=== PATIENT | male | born 1995 | race African-American/Black ===

== ENCOUNTER 2018-03-20 21:16 | Inpatient (IN) | payer BC ==
[~2018-03-20] VITALS: Ht 188 cm; Wt 79.4 kg
[2018-03-20] MEDS ORDERED: NKM (21:39)
[2018-03-20 21:40] VITALS: BP 126/81
--- NOTE | 2018-03-20 21:46 | NUR ---
ED Nurse Note: Patient came to ED c/o "ruptured left knee" due to playing basketball earlier today, patient reports going in for a dunk and landed wrong. patient was at [facility] earlier this night. pt stated that MD Hanson instructed pt to come to [facility] to have a Pre/Post op interventions done. pulse and sensation noted on affected extremity.
--- NOTE | 2018-03-20 22:39 | Emergency Room Report ---
History of Present Illness General Chief Complaint: Lower Extremity Injury Source: Patient Present Illness HPI Patient presents with complaints of left knee discomfort Reports that as he was planting to jump while playing basketball felt a pop and laxity to the left leg patient has significant pain to the left knee Reports that he was seen at another facility After being disposition patient is ambulatory to have any movement with crutches or with knee immobilizer Complains of continued pain Denies any hip pain or ankle pain Allergies: Coded Allergies: No Known Allergies (Unverified , 03/20/18) Patient History Past Medical History: see triage record Pertinent Family History: none Reviewed Nursing Documentation: PMH: Agreed; PSxH: Agreed Nursing Documentation-PMH Past Medical History: No Stated History Review of Systems All Other Systems: negative except mentioned in HPI Physical Exam Vital Signs Date Time Temp Pulse Resp B/P (MAP) Pulse Ox O2 Delivery O2 Flow Rate FiO2 03/20/18 21:36 97.9 67 18 127/73 99 Room Air Sp02 EP Interpretation: reviewed, normal General Appearance: well appearing, no apparent distress Head: normocephalic, atraumatic Eyes: bilateral eye PERRL, bilateral eye EOMI ENT: hearing grossly normal, normal pharynx, TMs + canals normal, uvula midline Neck: full range of motion, supple, no meningismus, no bony tend Respiratory: lungs clear, normal breath sounds, no rhonchi, no respiratory distress, no retraction, no accessory muscle use Cardiovascular #1: normal peripheral pulses, regular rate, rhythm, no edema, no gallop, no JVD, no murmur Gastrointestinal: normal bowel sounds, non tender, soft, no mass, no organomegaly, non-distended, no guarding, no hernia, no pulsatile mass, no rebound Genitourinary: no CVA tenderness Musculoskeletal: swelling - To the left knee, edematous Neurologic: oriented x3, responsive, records management director III-XII nml as tested, motor strength/ tone normal, sensory intact Psychiatric: mood/affect normal Skin: palpation normal, other - Swelling Lymphatic: normal inspection, no adenopathy Medical Decision Making Diagnostic Impression: Primary Impression: Injury of lower extremity Additional Impression: Patellar tendon rupture ER Course Patient has repeat imaging obtained at this time Requiring pain medication Patient's mom describing that the patient has significant discomfort Unable to transport from car to home On initial transport from the initial hospital the discomfort was intolerable Please note that the patient presented in a knee immobilizer and further intervention regarding that was not performed here Contact is made with orthopedic specialty who recommends further inpatient care and possible surgical intervention Patient admitted for further care Labs Test 03/20/18 22:30 White Blood Count 7.9 K/UL (4.8-10.8) Red Blood Count 4.50 M/UL (4.70-6.10) Hemoglobin 13.6 G/DL (14.2-18.0) Hematocrit 42.8 % (42.0-52.0) Mean Corpuscular Volume 95 FL (80-99) Mean Corpuscular Hemoglobin 30.3 PG (27.0-31.0) Mean Corpuscular Hemoglobin Concent 31.9 G/DL (32.0-36.0) Red Cell Distribution Width 12.0 % (11.6-14.8) Platelet Count 164 K/UL (150-450) Mean Platelet Volume 8.0 FL (6.5-10.1) Neutrophils (%) (Auto) 65.9 % (45.0-75.0) Lymphocytes (%) (Auto) 21.9 % (20.0-45.0) Monocytes (%) (Auto) 10.3 % (1.0-10.0) Eosinophils (%) (Auto) 0.7 % (0.0-3.0) Basophils (%) (Auto) 1.3 % (0.0-2.0) Sodium Level 139 MMOL/L (136-145) Potassium Level 3.5 MMOL/L (3.5-5.1) Chloride Level 102 MMOL/L (98-107) Carbon Dioxide Level 30 MMOL/L (21-32) Anion Gap 7 mmol/L (5-15) Blood Urea Nitrogen 15 mg/dL (7-18) Creatinine 1.0 MG/DL (0.55-1.30) Estimat Glomerular Filtration Rate > 60 mL/min (>60) Glucose Level 94 MG/DL (74-106) Calcium Level 9.1 MG/DL (8.5-10.1) Last Vital Signs Date Time Temp Pulse Resp B/P (MAP) Pulse Ox O2 Delivery O2 Flow Rate FiO2 03/20/18 21:36 97.9 67 18 127/73 99 Room Air Status: improved Disposition: PLACE IN OBSERVATION Condition: Improved Gail Lawton DO Mar 20, 2018 22:39
[2018-03-20 22:47] LABS: BASOPHILS % (AUTO) 1.3 % (0.0-2.0); EOSINOPHILS % (AUTO) 0.7 % (0.0-3.0); HEMATOCRIT 42.8 % (42.0-52.0); HEMOGLOBIN 13.6 G/DL (14.2-18.0); LYMPHOCYTES % (AUTO) 21.9 % (20.0-45.0); MEAN CORPUSCULAR VOLUME 95 FL (80-99); MONOCYTES % (AUTO) 10.3 % (1.0-10.0); NEUTROPHILS % (AUTO) 65.9 % (45.0-75.0); PLATELET COUNT 164 K/UL (150-450); WHITE BLOOD COUNT 7.9 K/UL (4.8-10.8)
[2018-03-20 22:56] LABS: ANION GAP 7 mmol/L (5-15); BLOOD UREA NITROGEN 15 mg/dL (7-18); CALCIUM 9.1 MG/DL (8.5-10.1); CARBON DIOXIDE 30 MMOL/L (21-32); CHLORIDE 102 MMOL/L (98-107); POTASSIUM 3.5 MMOL/L (3.5-5.1); SODIUM 139 MMOL/L (136-145)
[2018-03-20 23:40] VITALS: BP 129/79
[2018-03-21] VITALS (17 sets, daily range): BP systolic 107–142; BP diastolic 41–87
[2018-03-21] MEDS ORDERED: Ketorolac 30mg Inj IV ONE (01:00)
--- NOTE | 2018-03-21 07:31 | NUR ---
ED Nurse Note: Pt in bed sleeping comfortably, lung sounds clear, non-labored. Vital signs stable. When asked, pt stated he is not in pain. Knee immobilizer applied on L knee. Mother at bedside.
--- NOTE | 2018-03-21 08:40 | NUR ---
ED Nurse Note: 18G IV noted on L antecubital.
--- NOTE | 2018-03-21 08:58 | NUR ---
ED Nurse Note: RN tried to give report but no available RN to take report on at this time.
--- NOTE | 2018-03-21 09:17 | NUR ---
ED Nurse Note: Report given to JOHNIE Knutson at ext [phone]. Pt to be transfered to room [facility] on [facility] per protocol with all belongings.
--- NOTE | 2018-03-21 09:30 | NUR ---
NURSE NOTES: Received report from JOHNIE Black. Patient came and a/o x4. No respiratory distress and denies any pain at this time. Checked belongings with outgoing nurse. Orientation was given. Patient on NPO for possible surgery today. Bed in lowest position, call light within reach. Will continue to monitor.
--- NOTE | 2018-03-21 10:52 | Diagnostic Imaging Report ---
Indication: Pain, trauma Technique: 3 views of the left knee Comparison: None Findings: There is patella jovany. No acute fractures. No dislocations. There is evidence of thickening of the patellar tendon and adjacent subcutaneous fat on the lateral view. No definite suprapatellar effusion Impression: Possible patella jovany, raising concern for patellar tendon rupture. Correlate with clinical findings No acute bony trauma This agrees with clinical impression reported in the electronic medical record by the emergency room physician
--- NOTE | 2018-03-21 11:32 | NUR ---
NURSE NOTES: Dr. Hanson called and ordered get the consent for open repair of left patellar tendon. Noted and carried out.
--- NOTE | 2018-03-21 12:40 | NUR ---
NURSE NOTES: Dr. Adamson ordered 1. NPO 2. NS 100/hr IV hydration 3. Morphine 2 mg IVP Q3 for mild pain 4. Morphine 4 mg IVP Q3 for moderate pain Noted and carried out.
[2018-03-21] MEDS ORDERED: Morphine Sulfate 4mg/ml Inj (IV/IM USE ONLY) IVP PRN (12:49)
[2018-03-21] MEDS ORDERED: Morphine Sulfate 2mg/ml Inj IVP PRN (12:49)
--- NOTE | 2018-03-21 12:58 | History & Physical ---
History and Physical History & Physicial Patient presents with complaints of left knee pain and discomfort Reports that as he was planting to jump while playing basketball and felt a pop Patient was seen at another facility now noted to have a rupture and requires ortho intervention PMH negative MEDS and ALLERGIES negative PHYSICAL WDWN NAD clear breath sounds bilaterally without rhonchi or wheeze [id number] without MRG NABS nontender no HSM no CCE nonfocal Laboratory Tests Test 03/20/18 22:30 White Blood Count 7.9 K/UL (4.8-10.8) Red Blood Count 4.50 M/UL (4.70-6.10) L Hemoglobin 13.6 G/DL (14.2-18.0) L Hematocrit 42.8 % (42.0-52.0) Mean Corpuscular Volume 95 FL (80-99) Mean Corpuscular Hemoglobin 30.3 PG (27.0-31.0) Mean Corpuscular Hemoglobin Concent 31.9 G/DL (32.0-36.0) L Red Cell Distribution Width 12.0 % (11.6-14.8) Platelet Count 164 K/UL (150-450) Mean Platelet Volume 8.0 FL (6.5-10.1) Neutrophils (%) (Auto) 65.9 % (45.0-75.0) Lymphocytes (%) (Auto) 21.9 % (20.0-45.0) Monocytes (%) (Auto) 10.3 % (1.0-10.0) H Eosinophils (%) (Auto) 0.7 % (0.0-3.0) Basophils (%) (Auto) 1.3 % (0.0-2.0) Sodium Level 139 MMOL/L (136-145) Potassium Level 3.5 MMOL/L (3.5-5.1) Chloride Level 102 MMOL/L (98-107) Carbon Dioxide Level 30 MMOL/L (21-32) Anion Gap 7 mmol/L (5-15) Blood Urea Nitrogen 15 mg/dL (7-18) Creatinine 1.0 MG/DL (0.55-1.30) Estimat Glomerular Filtration Rate > 60 mL/min (>60) Glucose Level 94 MG/DL (74-106) Calcium Level 9.1 MG/DL (8.5-10.1) IMPRESSION patella tendon fracture PLAN medically stable ecg and pt and ptt surgery today and dispo per Chilo Stone MD Mar 21, 2018 12:57
[2018-03-21 13:44] LABS: INR 1.1 (0.9-1.1)
[2018-03-21] MEDS ORDERED: oxyCODONE HCL/Acetaminophen 5/325mg ORAL PRN (14:45)
[2018-03-21] MEDS ORDERED: fentaNYL 100 mcg/2 mL IV PRN (14:45)
[2018-03-21] MEDS ORDERED: Meperidine 50mg/ml Inj(FOR RIGORS ONLY) IVP PRN (14:45)
[2018-03-21] MEDS ORDERED: LORazepam Inj 2mg/ml 1ml IV PRN (14:45)
[2018-03-21] MEDS ORDERED: Hydromorphone 0.5mg/0.5ml inj IVP PRN (14:45)
[2018-03-21] MEDS ORDERED: Ketorolac 30mg Inj IV PRN ×2 (14:45)
[2018-03-21] MEDS ORDERED: Atropine Sulfate 0.4mg/ml inj IVP PRN (14:45)
[2018-03-21] MEDS ORDERED: LR 1000ml 1,000 ML IVLG SCH (14:45)
[2018-03-21] MEDS ORDERED: DiphenhydrAMINE 50mg/ml Inj IVP PRN (14:45)
[2018-03-21] MEDS ORDERED: Acetaminophen (Non formulary) 100 ML IV ONE (14:45)
[2018-03-21] MEDS ORDERED: Midazolam 2mg/2ml Inj IVP PRN (14:45)
[2018-03-21] MEDS ORDERED: Metoclopramide 10mg/2ml Inj IVP PRN (14:45)
[2018-03-21] MEDS ORDERED: HYDROcodone/Acetamin 7.5/325 tab ORAL PRN (14:45)
[2018-03-21] MEDS ORDERED: Norco 5mg/325mg tab ORAL PRN ×2 (14:45→16:15)
--- NOTE | 2018-03-21 14:47 | Anethesia Preoperative Eval ---
Anesthesia Pre-op PMH/ROS General Date of Evaluation: Mar 21, 2018 Time of Evaluation: 15:59 Anesthesiologist: Titi ASA Score: ASA 1 Mallampati Score Class I : Soft palate, uvula, fauces, pillars visible Class II: Soft palate, uvula, fauces visible Class III: Soft palate, base of uvula visible Class IV: Only hard plate visible Mallampati Classification: Class I Surgeon: Valentin Diagnosis: L Knee Pain Surgical Procedure: L Knee Patellar Tendon Repair Anesthesia History: none Family History: no anesthesia problems Allergies: Coded Allergies: No Known Allergies (Unverified , 03/20/18) Medications: see eMAR Patient NPO?: Yes NPO Date: Mar 20, 2018 NPO Time: 0000 Anesthesia Pre-op Phys. Exam Physician Exam Last Vital Signs Date Time Temp Pulse Resp B/P (MAP) Pulse Ox O2 Delivery O2 Flow Rate FiO2 03/21/18 12:00 98.1 71 19 128/70 (89) 97 03/21/18 09:36 Room Air Constitutional: NAD Neurologic: CN 2-12 intact Cardiovascular: RRR Respiratory: CTA Gastrointestinal: S/NT/ND Airway Exam Mallampati Score: Class I MO: full ROM: full Teeth: intact Anesthesia Pre-op A/P Labs Hematology Test 03/20/18 22:30 White Blood Count 7.9 K/UL (4.8-10.8) Red Blood Count 4.50 M/UL (4.70-6.10) L Hemoglobin 13.6 G/DL (14.2-18.0) L Hematocrit 42.8 % (42.0-52.0) Mean Corpuscular Volume 95 FL (80-99) Mean Corpuscular Hemoglobin 30.3 PG (27.0-31.0) Mean Corpuscular Hemoglobin Concent 31.9 G/DL (32.0-36.0) L Red Cell Distribution Width 12.0 % (11.6-14.8) Platelet Count 164 K/UL (150-450) Mean Platelet Volume 8.0 FL (6.5-10.1) Neutrophils (%) (Auto) 65.9 % (45.0-75.0) Lymphocytes (%) (Auto) 21.9 % (20.0-45.0) Monocytes (%) (Auto) 10.3 % (1.0-10.0) H Eosinophils (%) (Auto) 0.7 % (0.0-3.0) Basophils (%) (Auto) 1.3 % (0.0-2.0) Coagulation Test 03/21/18 13:15 Prothrombin Time 11.7 SEC (9.30-11.50) H Prothromb Time International Ratio 1.1 (0.9-1.1) Activated Partial Thromboplast Time 25 SEC (23-33) Chemistry Test 03/20/18 22:30 Sodium Level 139 MMOL/L (136-145) Potassium Level 3.5 MMOL/L (3.5-5.1) Chloride Level 102 MMOL/L (98-107) Carbon Dioxide Level 30 MMOL/L (21-32) Anion Gap 7 mmol/L (5-15) Blood Urea Nitrogen 15 mg/dL (7-18) Creatinine 1.0 MG/DL (0.55-1.30) Estimat Glomerular Filtration Rate > 60 mL/min (>60) Glucose Level 94 MG/DL (74-106) Calcium Level 9.1 MG/DL (8.5-10.1) Risk Assessment & Plan Assessment: ASA 1 Plan: GA, L Adductor Block Status Change Before Surgery: Yes Pre-Antibiotics Dru Grams Ancef IV Given Within 1 Hr of Incision: Yes Time Given: 16:11 Rudy Walls MD Mar 21, 2018 14:47
--- NOTE | 2018-03-21 15:25 | NUR ---
NURSE NOTES: Patient off the unit for surgery, open repair of left patellar tendon in stable condition.
[2018-03-21] MEDS ORDERED: Bacitracin 50000 Units Vial ONE (15:51)
[2018-03-21] MEDS ORDERED: EPINEPHrine 1mg/1ml Amp ONE (15:55)
[2018-03-21] MEDS ORDERED: Ropivacaine 5mg/ml Vial 30ml INJ ONE (15:55)
[2018-03-21] MEDS ORDERED: Lidocaine 1% MPF 10mg/ml 5ml ONE (15:56)
[2018-03-21] MEDS ORDERED: Sodium Chloride 10ml vial INJ ONE (15:56)
[2018-03-21] MEDS ORDERED: Dexamethasone 4mg/ml vial ONE (15:56)
[2018-03-21] MEDS ORDERED: Propofol 200mg/20ml IV ONE (15:56)
[2018-03-21] MEDS ORDERED: fentaNYL 100 mcg/2 mL IV ONE (15:57)
[2018-03-21] MEDS ORDERED: LR 1000ml ONE (16:00)
[2018-03-21] MEDS ORDERED: Sterile Water Irrig 1000ml IRRIG ONE (16:00)
[2018-03-21] MEDS ORDERED: NS Irrig 1000ml ONE (16:00)
--- NOTE | 2018-03-21 16:14 | Pre-Procedure Note/Attestation ---
Pre-Procedure Note/Attestation Complete Prior to Procedure Planned Procedure: left Procedure Narrative: patella tendon repair Indications for Procedure Pre-Operative Diagnosis: left patella rupture Attestation I attest that I discussed the nature of the procedure; its benefits; risks and complications; and alternatives (and the risks and benefits of such alternatives ), prior to the procedure, with the patient (or the patient's legal compliance representative). I attest that, if there was a reasonable possibility of needing a blood transfusion, the patient (or the patient's legal compliance representative) was given the [facility] standardized written summary, pursuant to the Wilian Marjorie Blood Safety Act ([place] Health and Safety Code # 1645, as amended). I attest that I re-evaluated the patient just prior to the surgery and that there has been no change in the patient's H&P, except as documented below: Glenroy Hanson MD Mar 21, 2018 16:14
--- NOTE | 2018-03-21 16:14 | Operative Note - PDOC ---
Operative Note Operative Note Pre-op Diagnosis: left patella rupture Procedure: see op report Post-op Diagnosis: same as pre-op plus Operative Findings: consistent w/pre-op dx studies Anesthesia: MAC Specimen: none Complications: none Condition: stable Estimated Blood Loss: none Implant(s) used?: No Glenroy Hanson MD Mar 21, 2018 16:14
[2018-03-21] MEDS ORDERED: HYDROmorphone 1mg/ml Carpuject SUBQ PRN (16:15)
[2018-03-21] MEDS ORDERED: D5 1/2NS 1,000 ML IV SCH (16:15)
[2018-03-21] MEDS ORDERED: Tylenol #3 tab (300mg/30mg) ORAL PRN (16:15)
--- NOTE | 2018-03-21 16:40 | Immediate Post-Op Evaluation ---
Immediate Post-Op Evalulation Immediate Post-Op Evalulation Procedure: L Knee Patellar Tendon Repair Date of Evaluation: Mar 21, 2018 Time of Evaluation: 17:25 IV Fluids: 600 LR Blood Products: 0 Estimated Blood Loss: 20 Urinary Output: 0 Blood Pressure Systolic: 109 Blood Pressure Diastolic: 39 Pulse Rate: 77 Respiratory Rate: 16 O2 Sat by Pulse Oximetry: 100 Temperature (Fahrenheit): 97.3 Pain Score (1-10): 2 Nausea: No Vomiting: No Complications 0 Patient Status: awake, reacts, patent, extubated, none Hydration Status: adequate Dru Grams Ancef IV Given Within 1 Hr of Incision: Yes Time Given: 16:11 Rudy Walls MD Mar 21, 2018 16:40
--- NOTE | 2018-03-21 16:41 | 48 Hour Post Anesthesia Eval ---
Post Anesthesia Evaluation Procedure: L Knee Patellar Tendon Repair Date of Evaluation: Mar 21, 2018 Time of Evaluation: 19:37 Blood Pressure Systolic: 117 0: 56 Pulse Rate: 72 Respiratory Rate: 18 Temperature (Fahrenheit): 98.4 O2 Sat by Pulse Oximetry: 100 Airway: patent Nausea: No Vomiting: No Pain Intensity: 2 Hydration Status: adequate Cardiopulmonary Status: Stable Mental Status/LOC: patient returned to baseline Follow-up Care/Observations: 0 Post-Anesthesia Complications: 0 Follow-up care needed: ready to discharge Rudy Walls MD Mar 21, 2018 16:41
[2018-03-21] MEDS ORDERED: NS Irrig 1000ml IRRIG ONE (16:48)
--- NOTE | 2018-03-21 18:00 | Consultation ---
DATE OF CONSULTATION: 03/21/2018 CHIEF COMPLAINT: Left knee pain. HISTORY OF PRESENT ILLNESS: The patient sustained injury to his left knee, diagnosed at an outside facility with patellar tendon rupture, difficulty ambulating was brought to the ER. Orthopedic consultation obtained for further care and recommendation. PAST MEDICAL HISTORY: Reviewed per intake chart. SURGICAL HISTORY: Reviewed per intake chart. MEDICATIONS: Reviewed per intake chart. PHYSICAL EXAMINATION: on the patellar tendon. Posterior calf is soft. Moderate knee effusion. Neurovascular is normal. IMAGING: Studies show right patella with fracture. ASSESSMENT: Left patella tendon rupture. DISCUSSION: We will proceed with admission if he is unable to leave. We will go ahead and proceed with open repair of the patellar tendon rupture. Risks, limitations, expectations, and complications of procedure were discussed in detail. All questions addressed. We will proceed with surgery later on today if medically optimized. Glenroy Hanson M.D. DR: ADIN JOB#: [id number] CC:
--- NOTE | 2018-03-21 18:30 | NUR ---
NURSE NOTES: Received patient from Janay Medina RN. Patient asleep and denies any pain at this time. No respiratory distress noted. Left knee surgical site is dry and intact. IV patent. Will continue to monitor.
--- NOTE | 2018-03-21 19:00 | Operative Note - Dictated ---
DATE OF OPERATION: 03/21/2018 PREOPERATIVE DIAGNOSIS: Left patellar tendon rupture. POSTOPERATIVE DIAGNOSIS: Left patellar tendon rupture. PROCEDURES: 1. Left knee open patellar tendon repair. 2. Left knee arthrotomy. 3. Irrigation and debridement. 4. Evacuation of hematoma, left knee. SURGEON: Glenroy Hanson M.D. ANESTHESIA: Femoral adductor general. INDICATION FOR PROCEDURE: The patient is a pleasant gentleman, who sustained acute patellar tendon rupture, was indicative of operative fixation. Risks, limitations, expectations, and complications of procedure were discussed in detail. All questions were addressed.. DESCRIPTION OF PROCEDURE: After informed consent was obtained, the patient was brought to the operative room. The patient was placed under femoral adductor general anesthesia. Left leg was prepped and draped in a sterile manner. Time-out was performed. Ancef was administered. Anterior skin incision was then made. Care was to ensure along the patella. Time-out was maintained. It seemed that tibia mid-substance kind of tear to the patellar tendon with some evidence along the inferior pole. Therefore, prior repair of patella tendon would be reasonable. Crack elbow was stitched with remnants along the inferior pole through the distal patellar tendon. A [id number] suture was used for further reinforcement. The arthrotomy site was closed using #0 Vicryl suture. Skin was closed with 20 Vicryl suture and 3-0 Monocryl suture. Dermabond dressing was applied along with compression dressing. Prior to repair, the patella time-out was explored. There was no intra-articular fragments. There was hematoma in the knee, which was evacuated, uses pulse lavage. Glenroy Hanson M.D. DR: PEGGY JOB#: [id number] CC:
--- NOTE | 2018-03-21 19:25 | NUR ---
HAND-OFF: Report given to JOHNIE Hernandez.
--- NOTE | 2018-03-21 19:30 | NUR ---
CASE MANAGEMENT: INITIAL REVIEW 03/21/2018 22 YO M PRESENTED TO OUR ED FROM HOME CC: LOWER EXTREMITY INJURY PMHx: DENIED SI:RUPTURED PATELLA. T 97.9 HR 76 RR 18 B/P 127/73 SATS 99% ON RA WNL IS: XRAY KNEE (Impression: Possible patella jovany, raising concern for patellar tendon rupture. No acute bony trauma) PATIENT ADMITTED UNDER OBS TO MED/SURG 03/21/2018 @0020 DCP: PATIENT TO BE DISCHARGED TO HOME ONCE MEDICALLY CLEARED. PLAN OF CARE: ORTHO EVAL Addendum: 03/23/18 at 0820 by Karly Mobley CM INTERQUAL MET FOR ACUTE
--- NOTE | 2018-03-21 21:15 | NUR ---
NURSE NOTES: Patient discharged from the unit stable condition, discharge instruction, belongings, crutches given to patient. Crutch use education provided adjusted to height and printed information about crutch use given. patient practiced crutch use before discharge. patient and family instructed to keep the dressing dry and intact till the follow up appointment in two weeks. Dr. deluca office telephone number provided to call and make appointment for follow up. Patient transported from the unit to the personal vehicle safely and with RN assistant professor of theater.
--- NOTE | 2018-03-21 21:38 | NUR ---
NURSE NOTES: Patient discharged in stable condition with crutches. Assisted by DAYSI Brooks via wheelchair. Left with family in private vehicle.
--- NOTE | 2018-03-22 10:59 | Discharge Summary ---
Discharge Summary Discharge Summary _ DATE OF ADMISSION: 03/21/2018 DATE OF DISCHARGE: 03/21/2018 SHEET ROCKER: Dr. Glenroy Hanson BRIEF HOSPITAL COURSE: Patient is a 22-year-old male who presented with complaints of left knee pain and discomfort. Patient reported while playing basketball, felt a pop on the left leg and had significant pain to the left knee. He reported he was seen at another facility. He complained of continued pain. On evaluation at the ED, vital signs were stable. Knee x-ray was done that showed patellar tendon rupture. There was no acute bony trauma. Patient discomfort was intolerable. There was no acute bony trauma. Orthopedic consultation was obtained. Patient was admitted and underwent left knee open patellar tendon repair; left knee arthrotomy with irrigation and debridement and evacuation of left knee hematoma. He tolerated procedure well. Postoperatively, he was given pain management. Diet was advanced. He was eventually discharged home and was provided DME's prior to discharge. FINAL DIAGNOSES: Left patellar tendon fracture Status post left knee open patellar tendon repair; left knee arthrotomy; irrigation and debridement Status post evacuation of hematoma, left knee DISPOSITION: Patient was discharged home. DISCHARGE MEDICATIONS: Refer to Discharge Medication List. DISCHARGE INSTRUCTIONS: Follow-up with Dr. Hanson in 2 weeks. I have been assigned to complete a discharge summary on this account, I was not involved with the patient's management. Xena Allison NP Mar 22, 2018 10:59
--- NOTE | 2018-03-22 15:14 | Cardiology Report ---
APPROVED REPORT EKG Measurement Heart [id number] ID [id number] Normal sinus rhythm with sinus arrhythmia Normal ECG
--- NOTE | 2018-03-24 12:37 | NUR ---
CASE MANAGEMENT: CM review and clinical information (face sheet/ ER MD Note/ H&P) faxed to KAVITA GOMEZ @ [phone]. TRK# [id number]
== END 2018-03-21 21:15 | disposition home or self-care (01) | DRG 502 ==
LOC: EMR 21:50 → CANBEDREQ 23:33 → 3E 03-21 00:20 → EDBEDREQ 03-21 08:52 → OBSVTOIN 03-21 09:15 → 3E 03-21 10:29
DX: S76.112A Strain of left quadriceps muscle, fascia and tendon, initial encounter (principal); X50.9XXA Other and unspecified overexertion or strenuous movements or postures, initial encounter; X50.0XXA Overexertion from strenuous movement or load, initial encounter; Y93.67 Activity, basketball; Y92.39 Other specified sports and athletic area as the place of occurrence of the external cause
CPT/HCPCS: 36415; 80048; 85025; 85610; 85730; 93005; 96374; 99284; J2405